=== PATIENT | male | born 1945 | race Caucasian/White ===

== ENCOUNTER 2020-12-01 22:29 | Emergency (ER) | payer OTHER ==
[~2020-12-01] VITALS: Ht 172.7 cm; Wt 86.2 kg
[2020-12-01] MEDS ORDERED: OXYC-128 PO (23:11)
--- NOTE | 2020-12-01 23:19 | NUR ---
SPOKE WITH UPSALA JONAS. DR NUÑEZ WILL CALL BACK. JONAS IS FAXING CLINICALS NOW.
[2020-12-01] MEDS ORDERED: oxyCODONE/APAP (5/325 MG) 1 UDTAB TABLET ONE (23:49)
[2020-12-01] MEDS ORDERED: ONDANSETRON 4 MG TAB.RAPDIS ONE (23:49)
[2020-12-01] MEDS: ONDANSETRON 4 MG TAB.RAPDIS SL ONE (23:51)
[2020-12-01] MEDS: oxyCODONE/APAP (5/325 MG) 1 UDTAB TABLET PO ONE (23:51)
--- NOTE | 2020-12-02 00:24 | NUR ---
[facility] ETA 0114
--- NOTE | 2020-12-02 01:06 | NUR ---
[facility] AT BEDSIDE FOR TRANSPORTATION HOME.
--- NOTE | 2020-12-02 01:14 | NUR ---
PT WAS PICKED UP BY [facility] VIA GURNEY AND D/C'D HOME IN STABLE CONDITION. Patient discharged to home in stable condition. Written and verbal after care instructions given. Patient verbalizes understanding of instruction.
[2020-12-02 01:16] VITALS: BP 138/84
== END 2020-12-02 01:17 | disposition home or self-care (01) ==
LOC: ER 22:33
DX: M79.662 Pain in left lower leg (principal); Z76.0 Encounter for issue of repeat prescription; R47.9 Unspecified speech disturbances; R22.42 Localized swelling, mass and lump, left lower limb; Z98.890 Other specified postprocedural states; Z60.2 Problems related to living alone
CPT/HCPCS: 73590; 93971; 99284; Q0162

== ENCOUNTER 2022-09-08 01:14 | Inpatient (IN) | payer OTHER ==
[~2022-09-08] VITALS: Ht 198.1 cm; Wt 81.6 kg
[~2022-09-08 01:14] MED LIST: OXYC-128 PO
--- NOTE | 2022-09-08 02:22 | NUR ---
IV L HAND #20G S/L; THERMAL MOLDER AT PT'S BEDSIDE
--- NOTE | 2022-09-08 02:30 | NUR ---
Pt is noted responsive as he was bought in from Home C/O SOB and Headaches with RR at 30 with S/P Albuterol breathing traetment given in the field. Pt care continue as awaits MD orders.
[2022-09-08 02:32] LABS: BASOPHILS % (AUTO) 0.7 % (0.0-2.0); EOSINOPHILS % (AUTO) 2.7 % (0.0-6.0); HEMATOCRIT 47 % (39-51); HEMOGLOBIN 15.4 g/dL (13.5-17.5); LYMPHOCYTES % (AUTO) 14.6 % (20.0-44.0); MEAN CORPUSCULAR HGB CONC 33 g/dl (31.0-36.0); MEAN CORPUSCULAR VOLUME 99 fL (80-96); MONOCYTES # (AUTO) 0.8 K/uL (0.1-1.30); MONOCYTES % (AUTO) 11.1 % (2.0-12.0); NEUTROPHILS # (AUTO) 4.9 K/uL (1.8-8.9); NEUTROPHILS % (AUTO) 70.9 % (43.0-81.0); PLATELET COUNT (AUTO) 171 K/uL (150-450); WHITE BLOOD COUNT (AUTO) 6.9 K/uL (4.3-11.0)
--- NOTE | 2022-09-08 02:42 | NUR ---
PT TAKEN TO CT VIA JANIA
[2022-09-08 02:45] LABS: CALCIUM, SERUM 9.1 mg/dL (8.5-10.1); CARBON DIOXIDE 18 mmol/L (21-32); CHLORIDE 106 mmol/L (98-107); CREATININE 1.9 mg/dL (0.6-1.3); GLUCOSE 133 mg/dL (74-106); POTASSIUM 3.4 mmol/L (3.5-5.1); SODIUM SERUM 142 mmol/L (136-145); UREA NITROGEN, BLOOD 17 mg/dL (7-18)
[2022-09-08 02:58] LABS: ALANINE AMINOTRANSFERASE 13 U/L (12-78); ALKALINE PHOSPHATASE 96 U/L (46-116); ASPARTATE AMINOTRANSFERASE 18 U/L (15-37); BILIRUBIN,DIRECT 0.1 mg/dL (0.0-0.2); BILIRUBIN,TOTAL 0.4 mg/dL (0.2-1.0); TOTAL PROTEIN, SERUM 7.4 g/dL (6.4-8.2)
--- NOTE | 2022-09-08 03:00 | NUR ---
Pt is noted back from CT . Pt care continue.
[2022-09-08] MEDS ORDERED: ALBUTEROL FS 2.5 MG/3 ML VIAL.NEB ONE (04:51)
[2022-09-08] MEDS ORDERED: IPRATROPIUM NEB FS 0.5 MG/2.5 ML AMPUL.NEB ONE (04:51)
[2022-09-08] MEDS ORDERED: IPRATROPIUM NEB FS 0.5 MG/2.5 ML AMPUL.NEB NEB ONE (05:00)
[2022-09-08] MEDS ORDERED: ALBUTEROL FS 2.5 MG/3 ML VIAL.NEB NEB ONE (05:00)
--- NOTE | 2022-09-08 05:12 | NUR ---
GUILLE EPRP PAGED PER DR BASURTO
[2022-09-08] MEDS ORDERED: FUROSEMIDE 40 MG/4 ML VIAL IV ONE (05:30)
[2022-09-08] MEDS ORDERED: FUROSEMIDE 40 MG/4 ML VIAL ONE (05:31)
--- NOTE | 2022-09-08 05:42 | NUR ---
Pt is noted off the unit to CT after been medicated with lASIX 40mg IVP and a new IV Access instered to LAC #20g fot CTA as ordred.
[2022-09-08] MEDS ORDERED: IV NS 0.9% 250 ML IV ONE (05:46)
[2022-09-08] MEDS ORDERED: CT SWABBABLE VALVE TRANS SET 1 EA INFUS.SET MC ONE (05:46)
[2022-09-08] MEDS ORDERED: IOHEXOL-350 100 ML VIAL IV ONE (05:46)
[2022-09-08] MEDS ORDERED: AMIODARONE 150 MG/3 ML VIAL IV ONE (05:50)
[2022-09-08] MEDS ORDERED: AMIODARONE 450 MG in IV D5W 250 ML IV ONE (06:00)
[2022-09-08] MEDS ORDERED: AMIODARONE 150 MG in IV D5W 100 ML IV ONE ×2 (06:00→10:30)
--- NOTE | 2022-09-08 06:16 | NUR ---
Pt is started on Amiodarone 150mg IVPB X1 and theen will start on the gtt per protocol. Pt care continue.
--- NOTE | 2022-09-08 06:19 | NUR ---
Pt is now Sinus Rhythm in the 70s as MD is made aware with orders noted to Hold on Amiodarone gtt. Pt care continue as he is been monitor closely.
[2022-09-08] MEDS ORDERED: MAG HYDROX/AL HYDROX/SIMETH 30 ML UDC PO PRN (06:30)
[2022-09-08] MEDS ORDERED: IPRATROPIUM NEB FS 0.5 MG/2.5 ML AMPUL.NEB NEB PRN (06:30)
[2022-09-08] MEDS ORDERED: ACETAMINOPHEN 325 MG TABLET PO PRN (06:30)
[2022-09-08] MEDS ORDERED: ALBUTEROL FS 2.5 MG/0.5 ML VIAL.NEB NEB PRN (06:30)
[2022-09-08] MEDS ORDERED: HYDROCODONE/APAP 5/325MG TABLET PO PRN (06:30)
[2022-09-08] MEDS ORDERED: Z GUARD REMEDY 4 OZ OINT TP PRN (06:30)
[2022-09-08] MEDS ORDERED: MORPHINE SULFATE INJ 2 MG/ML DISP.SYRIN IV PRN (06:30)
[2022-09-08] MEDS ORDERED: MAGNESIUM HYDROXIDE 30 ML UDC PO PRN (06:30)
[2022-09-08 06:35] LABS: CHOLESTEROL 98 mg/dL (<200); HDL CHOLESTEROL 36 mg/dL (40-60); LDL 60 mg/dL (0-99); TRIGLYCERIDES 90 mg/dL (30-150)
[2022-09-08 06:45] LABS: ABG BASE EXCESS -6.8 mmol/L; ABG PCO2 30.6 mmHg (35.0-45.0); ABG PH 7.365 (7.350-7.450); ABG PO2 187.9 mmHg (75.0-100.0); COHb 0.3 % (0.5-1.5); MetHb 0.5 % (0.0-1.5); O2Hb 98.4 % (94.0-97.0); SITE, ABG Right Radial; VENT MODE, BG SIMPLE MASK
--- NOTE | 2022-09-08 07:23 | NUR ---
Pt is care continue as report is given to the AM receiving nurse.
--- NOTE | 2022-09-08 07:48 | NUR ---
BED ASSIGNED 116-1
--- NOTE | 2022-09-08 07:57 | NUR ---
Report given to Nadiya RN-patient clear to go to room 116-1
--- NOTE | 2022-09-08 08:00 | NUR ---
Patient AOx2-3, he is able to express his concerns. Patient now requesting a urinal and able to use it. Dissicult to uinderstand and patient is also hard of hearing. Discussed plan of care, patient verbalized agreement.
--- NOTE | 2022-09-08 09:30 | NUR ---
JUANCARLOS RN ADMITTING NOTES: RECEIVED PT FROM ER VIA GURNEY ASSISTED BY 1RN AND 1EMT. PT IS A0X4. ABLE TO MAKE NEEDS KNOWN. RECEIVED PT WITH MASK AT 10LPM. O2 99%. NOTED WHEEZING UPON AUSCULTATION.PT ORIENTED TO ROOM AND CALL LIGHT FOR ASSISTANCE. IV ACCESS TO LEFT AC 20G AND LEFT HAND 20 G. BOTH FLUSHING. BOTH PATENT AND INTACT. BOWEL SOUNDS HEARD IN ALL 4 QUADRANTS. NO DIARRHEA, NO CONSTIPATION NOTED. BODY CHECKED DONE ORDERED. NOTED SKIN ISSUES TO L KNEE,L LEG, R LEG, ABD FOLD, MID CHEST. PHOTOS TAKEN AND KEPT CHART. WOUND CONSULT CARE CONSULT REQUESTED. NOTED PT WITH CONTRACTURE TO LEFT HAND AND BLE. VITAL SIGNS B/P129/78,TEMP 98.7,HR 154 AFIB, RESP 21.SAFETY PRECAUTION IN PLACED. BED IN LOW LOCK POSITION. S/R UP X2. CALL LIGHT WITHIN REACH.
[2022-09-08] MEDS ORDERED: BUDE10.2 INH (09:54)
[2022-09-08] MEDS ORDERED: LISI10TA29 PO (09:54)
[2022-09-08] MEDS ORDERED: TIOT4MIS2 INH (09:54)
[2022-09-08] MEDS ORDERED: MELA5TAB PO (09:54)
[2022-09-08] MEDS ORDERED: TACR100O2 TP (09:54)
[2022-09-08] MEDS ORDERED: FURO20TA4 PO (09:54)
[2022-09-08] MEDS ORDERED: GABA-532 PO (09:54)
[2022-09-08] MEDS ORDERED: CHOL100043 PO (09:54)
[2022-09-08] MEDS ORDERED: HYDR-3972 PO (09:54)
[2022-09-08] MEDS ORDERED: SIMV-49 PO (09:54)
[2022-09-08] MEDS ORDERED: NALO4SPR NS (09:54)
[2022-09-08] MEDS ORDERED: DICL100G34 TP (09:54)
[2022-09-08] MEDS ORDERED: LORA-259 PO (09:54)
[2022-09-08] MEDS ORDERED: POTA10TA10 PO (09:54)
[2022-09-08] MEDS ORDERED: CITA10TA9 PO (09:54)
[2022-09-08] MEDS ORDERED: LEVA15HF4 IH (09:54)
[2022-09-08] MEDS ORDERED: ASPI-1420 PO (09:54)
[2022-09-08] MEDS ORDERED: AMLO-212 PO (09:54)
[2022-09-08] MEDS ORDERED: POTASSIUM CHLORIDE 10 MEQ TABLET.SA PO ONE (10:00)
[2022-09-08] MEDS: PANTOPRAZOLE 40 MG VIAL IV SCH (10:12)
[2022-09-08] MEDS: FUROSEMIDE 40 MG/4 ML VIAL IV SCH (10:12)
[2022-09-08] MEDS ORDERED: AMIODARONE 450 MG in IV D5W 250 ML IV PRN (10:30)
[2022-09-08] MEDS: IPRATROPIUM NEB FS 0.5 MG/2.5 ML AMPUL.NEB NEB SCH ×3 (10:30→20:32)
--- NOTE | 2022-09-08 10:42 | NUR ---
JUANCARLOS RN NOTE: DR. HALL AT BEDSIDE.
--- NOTE | 2022-09-08 10:57 | NUR ---
STAGECRAFT TEACHER NOTE: NPO. WITH ORDER KCL PO. NOTIFIED PT IS UNABLE TO TOLERATE PO MED. CHANGED TO KCL IV
[2022-09-08] MEDS ORDERED: POTASSIUM CL. PREMIX PERIPHER. 50 ML IV SCH (11:00)
[2022-09-08] MEDS: methylPREDNISolone SOD SUCC 125 MG/2ML VIAL IV SCH ×2 (11:07→16:38)
--- NOTE | 2022-09-08 11:30 | NUR ---
JUANCARLOS RN NOTE: PT REQUESTED LUNCH. SWALLOW TEST DONE AT BEDSIDE.HOB KEPT ELEVATED. ABLE TO TOLERATE APPLE SAUCE, THIN LIQUID WATER. ,ABLE TO TOLERATE. WITH NO COUGHING, NO ASPIRATION NOTED. MD NOTIFIED. WITH ORDER PUREED DIET WITH THIN LIQUIDS AND SPEECH THERAPY EVAL.
[2022-09-08] MEDS: AMIODARONE 450 MG in IV D5W 241 ML IV PRN ×2 (11:38→21:05)
[2022-09-08] MEDS: APIXABAN 2.5 MG TABLET PO SCH ×2 (11:48→16:39)
[2022-09-08] MEDS: CEFEPIME 2 GM in IV D5W 100 ML IV SCH ×2 (12:46→21:03)
--- NOTE | 2022-09-08 13:30 | NUR ---
URINE SPECIMEN SENT TO LAB
--- NOTE | 2022-09-08 13:35 | NUR ---
MRSA SWAB COLLECTED AND SENT TO LAB
[2022-09-08 14:00] VITALS: BP 115/74
[2022-09-08 14:08] LABS: BILIRUBIN,URINE NEGATIVE (NEGATIVE); COLOR,URINE YELLOW (YELLOW); LEUKOCYTE ESTERASE ,URINE NEGATIVE (NEGATIVE); NITRITE, URINE NEGATIVE (NEGATIVE); PH,URINE 5.5 (5.0-8.0); PROTEIN,URINE NEGATIVE (NEGATIVE); UGLUCOSE NEGATIVE (NEGATIVE); UROBILINOGEN,URINE 0.2 EU/dL (0.2)
[2022-09-08 14:09] LABS: CREATININE, URINE 26.3 MG/DL (30.0-125.0)
[2022-09-08 14:16] LABS: THYROID STIMULATING HORMONE 0.683 uIU/mL (0.358-3.74)
--- NOTE | 2022-09-08 14:20 | NUR ---
RT AT BEDSIDE PLACED PT ON 4LPM NC. O2SAT AT 95%. HOB KEPT ELEVATED, NO SOB, NO DYSPNEA. NO RESP DISTRESS NOTED. CALL LIGHT WITHIN REACH.
[2022-09-08 14:27] VITALS: BP 107/67
--- NOTE | 2022-09-08 14:36 | NUR ---
[facility] [phone]
[2022-09-08 15:31] LABS: BACTERIA,URINE Few /HPF (None Seen); HYALINE CASTS, URINE Few /LPF (None Seen); RBC,URINE 0-2 /HPF (0-2); SQUAMOUS EPITHELIAL CELL,UR Few /HPF (None Seen); WBC,URINE 0-2 /HPF (0-3)
[2022-09-08 18:00] VITALS: BP 107/78
--- NOTE | 2022-09-08 18:33 | NUR ---
RN CLOSING NOTE: PT AOX3. ABLE TO DENY PAIN OR DISCOMFORT. ABLE TO MAKE NEEDS KNOWN. ON N/C AT 4LPM O2 SAT 97%. HOB KEPT ELEVATED. ASPIRATION PRECAUTION OBSERVED. ABLE TO TOLERATE CURRENT DIET. NO ASPIRATION NOTED. ON AMIODARONE DRIP PER PROTOCOL ATTACHED TO LAC 20G. PATENT AND INTACT. L HAND 20 G. PATENT AND INTACT. NO INFILTRATION NOTED. STILL NOTED WITH AFIB RVR HR 116. NO CHANGE IN LOC NOTED. REMAINS CALM AND STABLE AT THIS TIME. CALL LIGHT WITHIN REACH. CONT TO NEXT SHIFT FOR CONTINUATION OF CARE.
--- NOTE | 2022-09-08 20:00 | NUR ---
JUANCARLOS RN OPENING NOTE: RECEIVED PT IN BED AWAKE A/OX3 ON TELE MONITOR ON ST 132 NO SOB NO DISTRESS NOTED .V/S STABLE AFEBRILE NO C/O OF PAIN OR DISCOMFORT. ABLE TO MAKE NEEDS KNOWN. ON N/C AT 4LPM O2 SAT 97%. HOB KEPT ELEVATED. ASPIRATION PRECAUTION OBSERVED. ON AMIODARONE DRIP O.5MG /16.6 ML /HR ATTACHED TO LAC 20G. PATENT AND INTACT. L HAND 20 G. PATENT AND INTACT. NO INFILTRATION NOTED. . NO CHANGE IN LOC NOTED. REMAINS CALM AND STABLE AT THIS TIME. CALL LIGHT WITHIN REACH. WILL CONTINUE TO MONITOR PTS.
--- NOTE | 2022-09-08 22:30 | NUR ---
JUANCARLOS RN NOTES Pts c/o of n/v x1 EPISODE SMALL AMT OF EMESIS . ZOFRAN 4MG IVP GIVEN ORDERED WITH EFFECT .WILL CONTINUE TO MONITOR PTS.
[2022-09-08] MEDS: ONDANSETRON HCL/PF 4 MG/2 ML VIAL IVP PRN (22:31)
[2022-09-09] VITALS: BP 111/67
[2022-09-09] MEDS: IPRATROPIUM NEB FS 0.5 MG/2.5 ML AMPUL.NEB NEB SCH ×4 (01:23→19:30)
[2022-09-09 04:00] VITALS: BP 113/57
--- NOTE | 2022-09-09 05:42 | NUR ---
LABEL REMOVER note LAC peripheral line D/C, RAC 22GA started, flushing well, C/D/I
[2022-09-09 06:06] LABS: BASOPHILS % (AUTO) 0.1 % (0.0-2.0); HEMATOCRIT 42 % (39-51); HEMOGLOBIN 13.7 g/dL (13.5-17.5); LYMPHOCYTES # (AUTO) 0.5 K/uL (0.8-4.8); LYMPHOCYTES % (AUTO) 6.7 % (20.0-44.0); MEAN CORPUSCULAR HGB CONC 33 g/dl (31.0-36.0); MEAN CORPUSCULAR VOLUME 98 fL (80-96); MONOCYTES # (AUTO) 0.5 K/uL (0.1-1.30); MONOCYTES % (AUTO) 6.5 % (2.0-12.0); NEUTROPHILS # (AUTO) 6.2 K/uL (1.8-8.9); NEUTROPHILS % (AUTO) 86.7 % (43.0-81.0); PLATELET COUNT (AUTO) 163 K/uL (150-450); RED BLOOD CELL COUNT(AUTO) 4.24 MIL/uL (4.5-6.0); WHITE BLOOD COUNT (AUTO) 7.1 K/uL (4.3-11.0)
[2022-09-09 06:21] LABS: ALANINE AMINOTRANSFERASE 14 U/L (12-78); ALBUMIN 3.1 g/dL (3.4-5.0); ALKALINE PHOSPHATASE 69 U/L (46-116); ASPARTATE AMINOTRANSFERASE 23 U/L (15-37); BILIRUBIN,TOTAL 0.5 mg/dL (0.2-1.0); CALCIUM, SERUM 7.5 mg/dL (8.5-10.1); CARBON DIOXIDE 18 mmol/L (21-32); CHLORIDE 110 mmol/L (98-107); CREATININE 1.6 mg/dL (0.6-1.3); GLUCOSE 117 mg/dL (74-106); MAGNESIUM 1.8 mg/dL (1.8-2.4); PHOSPHORUS 3.2 mg/dL (2.5-4.9); POTASSIUM 3.1 mmol/L (3.5-5.1); SODIUM SERUM 143 mmol/L (136-145); UREA NITROGEN, BLOOD 22 mg/dL (7-18)
--- NOTE | 2022-09-09 06:53 | NUR ---
obdulia rn notes Pts remain in bed awake and responsive continue on amiodrip at 0.5 mg /16.6/hr .pts still on on tele monitor afib 115 on the monitor will endorse to rn day shift for continuity of care.
--- NOTE | 2022-09-09 06:54 | NUR ---
CLIENT SERVICES MANAGER closing note Pt resting in bed, awake, A&Ox3, able to make needs known, breathing even and unlabored, on o2 at 4L via NC, amiodarone infusing via RAC 22GA, IV site C/D/I, tele monitor intact, Afib contorled, HR 150, all due meds given per MD orders tolerated well, repositioned q2h and prn, all basic needs met and anticipated, will endorse to am shift
--- NOTE | 2022-09-09 07:37 | NUR ---
JUANCARLOS RN OPENING NOTE: RECEIVED PT IN BED AWAKE A/OX3, NO SOB NO DISTRESS NOTED .V/S STABLE AFEBRILE NO C/O OF PAIN OR DISCOMFORT. ABLE TO MAKE NEEDS KNOWN. ON N/C AT 4LPM O2 TOLERATING WELL. ON TELE MONITOR WITH READING AFIV WITH RVR HR 130'S. HOB KEPT ELEVATED. ASPIRATION PRECAUTION OBSERVED. ON AMIODARONE DRIP O.5MG /16.6 ML /HR ATTACHED TO LAC 20G. PATENT AND INTACT. L HAND 20 G. PATENT AND INTACT. NO INFILTRATION NOTED. NO CHANGE IN LOC NOTED. REMAINS CALM AND STABLE AT THIS TIME. CALL LIGHT WITHIN REACH. PLAN OF CARE CONTINUE.
[2022-09-09] MEDS: CEFEPIME 2 GM in IV D5W 100 ML IV SCH ×2 (08:03→20:44)
[2022-09-09] MEDS: PANTOPRAZOLE 40 MG VIAL IV SCH (08:04)
[2022-09-09] MEDS: FUROSEMIDE 40 MG/4 ML VIAL IV SCH (08:05)
[2022-09-09] MEDS: ONDANSETRON HCL/PF 4 MG/2 ML VIAL IVP PRN ×2 (08:05→16:19)
[2022-09-09] MEDS: methylPREDNISolone SOD SUCC 125 MG/2ML VIAL IV SCH ×2 (08:06→16:15)
[2022-09-09] MEDS: APIXABAN 2.5 MG TABLET PO SCH ×3 (08:18→16:34)
[2022-09-09] MEDS ORDERED: POTASSIUM CHLORIDE 20 MEQ TAB.PRT.SR PO SCH (09:00)
--- NOTE | 2022-09-09 09:39 | NUR ---
INFORMED DR. HADDAD THAT PATIENT CAN'T TOLERATED PO DUE TO VOMITING, PATIENT NOTED ON PO POTASSIUM, WITH ORDER TO CHANGED PO TO IV POTASSIUM SAME DOSE, NOTED AND CARRIED OUT.
[2022-09-09] MEDS: POTASSIUM CL. PREMIX PERIPHER. 50 ML IV SCH ×6 (10:15→15:37)
--- NOTE | 2022-09-09 11:31 | NUR ---
PATIENT STILL NOTED HAVING NAUSEA AND VOMITING, INFORMED DR. HADDAD WITH NEW ORDEER TO GIVE REGLAN 10MG, NOTED AND CARRIED OUT.
--- NOTE | 2022-09-09 11:56 | NUR ---
INFORMED DR. HALL PATIENT STILL AFIB WITH RVR HR 150'S, AMIODARONE DRIP IS END AT 1000H PER PROTOCOL, WITH ORDER TO DC AMIODARONE DRIP, PER DR. HALL PATIENT IS OK TO TRANSFER TO [facility], THEY CAN CARDIOVERT AT [facility]. NOTED AND CARRIED OUT, INFORMED DR. HADDAD.
[2022-09-09 12:00] VITALS: BP 117/70
[2022-09-09] MEDS ORDERED: METOCLOPRAMIDE HCL 10 MG/2 ML VIAL IV PRN (12:00)
--- NOTE | 2022-09-09 13:13 | NUR ---
RECEIVED NEW ORDER FROM DR. HALL DIGOXIN 0.25MG IV X 1 NOW, NOTED AND CARRIED OUT.
[2022-09-09] MEDS ORDERED: DIGOXIN INJ 0.5 MG/2 ML AMPUL IV ONE ×2 (13:30→19:00)
[2022-09-09 16:00] VITALS: BP 121/85
[2022-09-09] MEDS: ENSURE ENLIVE 237 ML LIQUID (VANILLA) PO SCH (16:00)
--- NOTE | 2022-09-09 16:35 | NUR ---
PATIENT STILL NOTED VOMITING EVEN WITH REGLAN, PATIENT STATED HE DID NOT HAVE BOWEL MOVEMENT FOR 1 WEEK AND 1/2, NOTED LOWER ABDOMEN HARD TO TOUCH, POSITIVE BOWEL SOUNDS, INFORMED DR. HADDAD WITH ORDER TO STAT KUB, COLACE 100MG BID SCHEDULED, MIRALAX 17GM BID SCHEDULED, LACTULOSE 20GM BID X 1 DAY, SUPPOSITORY PRN, NOTED AND CARRIED OUT.
--- NOTE | 2022-09-09 16:38 | NUR ---
PATIENT UNABLE TO TAKE ELIQUIS PO DUE TO VOMITING, INFORMED DR. HALL WITH NEW ORDER: DIGOXIN 0.25MG IV Q 6HRS X 3 DOSES, NOTED AND CARRIED OUT.
[2022-09-09] MEDS: POLYETHYLENE GLYCOL 3350 17 GM POWD.PACK PO SCH (17:00)
[2022-09-09] MEDS: DOCUSATE SODIUM 100 MG CAPSULE PO SCH (17:00)
[2022-09-09] MEDS ORDERED: BISACODYL SUPP (10 MG) 10 MG/SUPP.RECT SUPP.RECT RC PRN (17:30)
[2022-09-09] MEDS: DIGOXIN INJ 0.5 MG/2 ML AMPUL IV SCH (17:52)
--- NOTE | 2022-09-09 18:14 | NUR ---
INFORMIX DEVELOPER CLOSING NOTE: PT IN BED SLEEPING A/OX3, VERBALLY RESPONSIVE WHEN AWAKEN, NO SOB NO DISTRESS NOTED .V/S STABLE AFEBRILE NO C/O OF PAIN OR DISCOMFORT. ABLE TO MAKE NEEDS KNOWN. ON N/C AT 4LPM O2 TOLERATING WELL. ON TELE MONITOR WITH READING AFIV WITH RVR HR 130'S, DENIES CHEST PAIN. HOB KEPT ELEVATED. ASPIRATION PRECAUTION OBSERVED. PIV ON RIGHT AC AND LEFT HAND 20G AND PATENT AND INTACT, FLUSHES WELL, NO INFILTRATION NOTED. NO CHANGE IN LOC NOTED. REMAINS CALM AND STABLE AT THIS TIME. CALL LIGHT WITHIN REACH. SAFETY MEASURES IN PLACED. WILL ENDORSE TO NIGHT NURSE FOR JAMEEL.
[2022-09-09 20:00] VITALS: BP 113/80
--- NOTE | 2022-09-09 20:00 | NUR ---
telephone quotation clerk OPENING NOTE: RECEIVED PT IN BED AWAKE A/OX3 ON TELE MONITOR ON afib 140 NO SOB NO DISTRESS NOTED .V/S STABLE AFEBRILE NO C/O OF PAIN OR DISCOMFORT. ABLE TO MAKE NEEDS KNOWN. ON N/C AT 4LPM O2 SAT 97%. HOB KEPT ELEVATED. ASPIRATION PRECAUTION OBSERVED.IV RIGHTAC g22 INTACT AND PATENT ,RIGHT HAND G20 PATENT AND INTACT. NO INFILTRATION NOTED. . NO CHANGE IN LOC NOTED. REMAINS CALM AND STABLE AT THIS TIME. ALL DUE MEDS GIVEN ORDERED CALL LIGHT WITHIN REACH.PTS IS NPO STATUS FOR CARDIOVERSION IN AM (DR HALL.) RP MADE AWARE OF PROCEDURE WILL CONTINUE TO MONITOR PTS.
[2022-09-10] VITALS: BP 126/78
--- NOTE | 2022-09-10 | NUR ---
telephone information supervisor notes digoxin 0.25mg given as ordered
[2022-09-10] MEDS: DIGOXIN INJ 0.5 MG/2 ML AMPUL IV SCH ×2 (00:58→05:59)
[2022-09-10] MEDS: IPRATROPIUM NEB FS 0.5 MG/2.5 ML AMPUL.NEB NEB SCH ×4 (01:21→19:23)
[2022-09-10 04:00] VITALS: BP 121/78
--- NOTE | 2022-09-10 06:26 | NUR ---
satellite television installer notes digoxin 0.25mg given ivp at 6am as ordered with hr of 140s pts remain npo status for cardioversion
--- NOTE | 2022-09-10 06:29 | NUR ---
radiotelephone technical operator notes, PTS REMAIN IN BED AWAKE , STILL AFIB 130-140s UNCONTROLLED ON THE MONITOR , npo status , for cardioversion today , will endorse to morning shift for continuity of care.
[2022-09-10 07:15] LABS: HEMATOCRIT 47 % (39-51); HEMOGLOBIN 15.5 g/dL (13.5-17.5); LYMPHOCYTES # (AUTO) 0.5 K/uL (0.8-4.8); LYMPHOCYTES % (AUTO) 3.7 % (20.0-44.0); MEAN CORPUSCULAR HGB CONC 33 g/dl (31.0-36.0); MEAN CORPUSCULAR VOLUME 98 fL (80-96); MONOCYTES % (AUTO) 7.1 % (2.0-12.0); NEUTROPHILS # (AUTO) 12.2 K/uL (1.8-8.9); NEUTROPHILS % (AUTO) 89.2 % (43.0-81.0); PLATELET COUNT (AUTO) 165 K/uL (150-450); RED BLOOD CELL COUNT(AUTO) 4.83 MIL/uL (4.5-6.0); WHITE BLOOD COUNT (AUTO) 13.7 K/uL (4.3-11.0)
[2022-09-10 07:18] LABS: ALANINE AMINOTRANSFERASE 23 U/L (12-78); ALBUMIN 3.6 g/dL (3.4-5.0); ALKALINE PHOSPHATASE 78 U/L (46-116); ASPARTATE AMINOTRANSFERASE 47 U/L (15-37); BILIRUBIN,TOTAL 0.6 mg/dL (0.2-1.0); CALCIUM, SERUM 9.2 mg/dL (8.5-10.1); CARBON DIOXIDE 24 mmol/L (21-32); CHLORIDE 107 mmol/L (98-107); CREATININE 1.9 mg/dL (0.6-1.3); GLUCOSE 124 mg/dL (74-106); MAGNESIUM 2.5 mg/dL (1.8-2.4); PHOSPHORUS 2.8 mg/dL (2.5-4.9); POTASSIUM 5.2 mmol/L (3.5-5.1); SODIUM SERUM 142 mmol/L (136-145); TOTAL PROTEIN, SERUM 7.1 g/dL (6.4-8.2); UREA NITROGEN, BLOOD 37 mg/dL (7-18)
--- NOTE | 2022-09-10 07:37 | NUR ---
PT ARRIVED IN ICU FOR CARDIOVERSION. PT UNABLE TO SIGN CONSENT. NO ORDERS NOTED IN COMPUTER FOR CARDIOVERSION OR MEDS FOR SEDATION FOR PATIENT. WILL CLARIFY ORDERS WITH DR HALL.
[2022-09-10 07:43] LABS: DIGOXIN 8.54 ng/mL (0.90-2.00)
[2022-09-10 08:00] VITALS: BP 121/78
[2022-09-10] MEDS ORDERED: ANESTHESIA TRAY IN PYXIS 1 EA TRAY MC ONE (08:29)
[2022-09-10] MEDS ORDERED: MIDAZOLAM HCL 2 MG/2ML VIAL ONE (08:37)
[2022-09-10] MEDS: LACTULOSE 10 G/15 ML UDC (PYXIS) PO SCH ×2 (09:00→16:47)
[2022-09-10] MEDS: ENSURE ENLIVE 237 ML LIQUID (VANILLA) PO SCH ×2 (09:00→16:50)
[2022-09-10] MEDS ORDERED: IV NS 0.9% 1,000 ML IV PRN (09:00)
[2022-09-10] MEDS: POLYETHYLENE GLYCOL 3350 17 GM POWD.PACK PO SCH ×2 (09:00→16:50)
[2022-09-10] MEDS: AMIODARONE HCL 200 MG TABLET PO SCH ×3 (09:00→16:47)
[2022-09-10] MEDS: APIXABAN 2.5 MG TABLET PO SCH ×2 (09:00→16:49)
[2022-09-10] MEDS: CEFEPIME 2 GM in IV D5W 100 ML IV SCH ×2 (09:00→21:06)
[2022-09-10] MEDS: methylPREDNISolone SOD SUCC 125 MG/2ML VIAL IV SCH ×2 (09:00→16:47)
[2022-09-10] MEDS: PANTOPRAZOLE 40 MG VIAL IV SCH (09:00)
[2022-09-10] MEDS: DOCUSATE SODIUM 100 MG CAPSULE PO SCH ×2 (09:00→16:48)
--- NOTE | 2022-09-10 09:36 | NUR ---
0851 - PRIOR TO CARDIOVERSION. PT'S RIGHT HEARING AID REMOVED. DR HALL AT BEDSIDE, WASTE MANAGEMENT RECYCLING TECHNICIAN AT BEDSIDE. PER WASTE MANAGEMENT RECYCLING TECHNICIAN 10MCG PROPOFOL, 6MG ETOMIDATE, 2MG VERSED GIVEN TO PATIENT FOR SEDATION. 6L SIMPLE MASK APPLIED TO PATIENT PRIOR TO PROCEDURE. VERBAL PROCEDURE CONSENT AND ANESTHESIA CONSENT OBTAINED AND WITNESSED PRIOR TO SEDATION.. VS: HR 142 RAPID A-FIB, 124/93, 96% 0852 - 200J SHOCK GIVEN TO PATIENT USING ACLS PROTOCOL. PT IMMEDIATELY CONVERTED TO SR, RATE 98. POST SHOCK VS: 98, 115/82 95% ON 6L SIMPLE MASK. 0930 - PT NOT AWAKE FOLLOWING PROCEDURE OF THIS TIME. VS STABLE. POST PROCEDURE EKG DONE. CURRENT VS: 93-125/80-98% 6L SM. WILL CONTINUE TO MONITOR. PER DR HALL OK FOR PATIENT TO TRANSFER TO [place]. CASE MANAGEMENT NOTIFIED.
[2022-09-10] MEDS ORDERED: AMIO200T7 PO (10:18)
[2022-09-10] MEDS ORDERED: APIX2.5T PO (10:18)
--- NOTE | 2022-09-10 10:32 | NUR ---
PT TRANSFERRED BACK TO ROOM 116-1 VIA BED, ACLS PROTOCOL FOLLOWED. PT AWAKE, OX4, YOMBA SHOSHONE, HEARING AID IN PLACE. PHONE AND BEDSIDE REPORT GIVEN.
--- NOTE | 2022-09-10 10:35 | NUR ---
RN NOTES: PT S/P CARDIOVERSION. PICKED UP [place] FROM ICU VIA BED WITH FEMI VALDEZ. PT ALERT AND ORIENTED X 4 HARD OF HEARING WITH RIGHT EAR HEARING AIDE. NO SOB NOTED ON O2 INHALATION @ 4LPM VIA NC SATURATING @ 96%. ON SOCCER REFEREE WITH CURRENT READING SINUS @90BPM. RECEIVED REPORT FROM [facility] ICU. IV ACCESS JESSICA G22,R HAND G20, LAC G 20. PATENT INTACT AND SALINE LOCKED. PER ENDORSEMENT PT WILL BE TRANSFERRED TO [place]. VS TAKEN BP 128/83, 90BPM, 95% O2 SAT,HR 20. SAFETY MEASURES MAINTAINED: BED LOCKED AND IN LOWEST POSITION, SIDE RAILS UP X 3, CALL LIGHT IN EASY REACH.
--- NOTE | 2022-09-10 11:00 | NUR ---
RN NOTES: INFORMED DR STEELE FOR RECENT K LEVEL 5.2. PER DR STEELE NO NEW ORDER. CALLED MANAGEMENT SPOKE TO DALIA WITH REGARDS TO [facility] TRANSFER. PER DALIA, ITS TERA'S PT, AND WILL INFORM TO CALL RN FOR TRANSFER.
[2022-09-10 12:00] VITALS: BP 130/82
[2022-09-10 16:00] VITALS: BP 128/72
--- NOTE | 2022-09-10 18:00 | NUR ---
RN NOTES: RECEIVED A CALL FROM CHARLES ([facility]) AND GAVE REPORT. TRANSPORTATION PENDING WILL ENDORSE TO NEXT SHIFT.
--- NOTE | 2022-09-10 18:47 | NUR ---
CAMERA PERSON CLOSING NOTES: PT IN BED ASLEEP, EASILY AROUSED WITH STIMULI. A/O X4. HARD OF HEARING. WITH RIGHT EAR HEARING AIDE NOTED. NO SOB OR CARDIAC DISTRESS NOTED. ON TELE MONITOR WITH CURRENT READING OF SINUS RHYTHM @79 BPM. IV ACCESS ON JESSICA GAUGE 22, R HAND G20, LAC GAUGE 20 PATENT,INTACT AND SALINE LOCKED. SAFETY MEASURES MAINTAINED: BED LOCKED AND IN LOWEST POSITION, SIDE RAILS UP X 2. CALL LIGHT IN EASY REACH. WILL ENDORSE TO SENIOR DIRECTOR CREATIVE SERVICES RN FOR CONTINUITY OF CARE.
--- NOTE | 2022-09-10 19:20 | NUR ---
RN NOTE RECEIVED PT FOR CONTINUITY OF CARE. PATIENT A/OX3-4 IN NO S/SX OF ACUTE DISTRESS AT THIS TIME; CURRENTLY ON ROOM AIR; WITH 02 SAT >95% AT THIS TIME.WITH IV ACCESS ON R AC#22 AND L HAND#20 PATENT, INTACT AND FLUSHING WELL. WITH RUNNING NS@75CC/HR. ON PUREED DIET. WILL ENSURE SAFETY MEASURES WITHIN THE SHIFT. PATIENT BED ALARM IS ON. HEAD OF BED ELEVATED. BED IS LOCKED, IN LOWEST POSITION AND SIDE RAILS UP. CALL LIGHT WITHIN REACH OF THE PATIENT. WILL CONTINUE TO MONITOR AND REASSESS FOR ANY CHANGES AND WILL CARRY OUT ANY ONGOING AND ACTIVE MD ORDER.
[2022-09-10 20:00] VITALS: BP 112/70
--- NOTE | 2022-09-10 20:45 | NUR ---
MATTHEW NOTE RECEIVED CALL FROM GUILLE WAN ([facility]- [phone]) WAS GIVEN THE ADVISE THAT PT WILL BE PICKED UP [facility] MORNING AROUND 0700AM. SOMEONE FROM THEIR TEAM WILL CALLBACK TO PROVIDE UNIT AND ROOM NUMBER FOR PT. RN ACKNOWLEDGED. RUSSIAN LANGUAGE PROFESSOR MADE AWARE. Addendum: 09/10/22 at 2103 by RAFAT ANDERSEN RN [facility] CALLED BACK ROOM [id number] AND UNIT # FOR REPORT [phone]
[2022-09-11] VITALS: BP 115/78
[2022-09-11] MEDS: IPRATROPIUM NEB FS 0.5 MG/2.5 ML AMPUL.NEB NEB SCH (01:30)
--- NOTE | 2022-09-11 02:45 | NUR ---
RN NOTE CALLED [facility] [phone] FOR REPORT; S/W MATTHEW MCQUEEN REQUESTED FOR CALLBACK; PROVIDED CALLBACK #. Addendum: 09/11/22 at 0340 by RAFAT ANDERSEN RN [phone] ATTEMPT TO GIVE REPORT, RN NOT AVAILABLE , REQUESTED FOR CALLBACK.
[2022-09-11 04:00] VITALS: BP 120/62
--- NOTE | 2022-09-11 04:35 | NUR ---
RN NOTE CALLED [facility] [phone] FOR REPORT; S/W MATTHEW MCQUEEN. PROVIDED ALL PT INFO AND MEDICAL UPDATES. RN ACKNOWLEDGED. PT WILL BE GOING TO RM [id number], AMBULANCE CARPET LOOM FIXER TIME BY 0700AM. PRINCIPAL ELECTRICAL ENGINEER MADE AWARE.
[2022-09-11 06:18] LABS: BASOPHILS % (AUTO) 0.1 % (0.0-2.0); HEMATOCRIT 48 % (39-51); HEMOGLOBIN 15.4 g/dL (13.5-17.5); LYMPHOCYTES # (AUTO) 0.4 K/uL (0.8-4.8); LYMPHOCYTES % (AUTO) 3.6 % (20.0-44.0); MEAN CORPUSCULAR HGB CONC 32 g/dl (31.0-36.0); MEAN CORPUSCULAR VOLUME 100 fL (80-96); MONOCYTES # (AUTO) 0.5 K/uL (0.1-1.30); MONOCYTES % (AUTO) 5.2 % (2.0-12.0); NEUTROPHILS # (AUTO) 9.3 K/uL (1.8-8.9); NEUTROPHILS % (AUTO) 91.1 % (43.0-81.0); PLATELET COUNT (AUTO) 146 K/uL (150-450); RED BLOOD CELL COUNT(AUTO) 4.78 MIL/uL (4.5-6.0); WHITE BLOOD COUNT (AUTO) 10.1 K/uL (4.3-11.0)
--- NOTE | 2022-09-11 06:42 | NUR ---
RN NOTE PATIENT REMAINS IN ROOM IN NO SIGNS OF RESPIRATORY DISTRESS, PATIENT STILL ON ROOM AIR; TOLERATING WELL SATURATING @ >95% SP02. REMAINED SR ON MONITOR. ON PUREED DIET. SAFETY MEASURES IMPLEMENTED, BED IN LOWEST POSITION, LOCKED, SIDE RAILS UP, CALL LIGHT WITHIN REACH. ALL NEEDS AND ORDERS ADDRESSED DURING THE SHIFT. IV ACCESS MAINTAINED INTACT, SECURED AND FLUSHING WELL. ALL DUE MEDS GIVEN ORDERED & SCHEDULED ; PATIENT TOLERATED WELL. PATIENT KEPT CLEAN AND COMFORTABLE WITHIN THE SHIFT. PLAN: FOR DC GOING TO [facility] RM 5208, REPORT GIVEN TO RN. IMPROVEMENT LEAD TIME 0700AM. DC PACKET READY AND WILL BE ENDORSE TO LAUREEN DOTY RN. PATIENT ENDORSED TO INCOMING SHIFT RN WITH STABLE VITAL SIGN AND FOR CONTINUITY OF CARE.
[2022-09-11 07:08] LABS: CALCIUM, SERUM 8.9 mg/dL (8.5-10.1); CARBON DIOXIDE 25 mmol/L (21-32); CHLORIDE 105 mmol/L (98-107); CREATININE 1.4 mg/dL (0.6-1.3); GLUCOSE 129 mg/dL (74-106); POTASSIUM 4.9 mmol/L (3.5-5.1); SODIUM SERUM 138 mmol/L (136-145); UREA NITROGEN, BLOOD 36 mg/dL (7-18)
--- NOTE | 2022-09-11 07:20 | NUR ---
RN NOTE AMBULANCE STAFF HERE TO PICK UPPATIENT, REPORT GIVEN, VITAL SIGNS WNL AND PT IN STABLE CONDITION. ALL BELONGINGS ACCOUNTED FOR AND SENT WITH PT INCLUDING RIGHT EAR HEARING AID ONLY. AM SALES REPRESENTATIVE PRINTING SUPPLIES AWARE.
== END 2022-09-11 07:45 | disposition short-term general hospital (02) | DRG 291 ==
LOC: ER 01:22 → TELE-TD 07:57 → TELE1 09-09 09:40 → ICU 09-10 07:25 → TELE-TD 09-10 10:37
PROVIDERS: ADMIT Internal Medicine; ATTEND Internal Medicine
PROC: 5A2204Z Restoration of Cardiac Rhythm, Single (ICD-10-PCS; principal; 2022-09-10)
DX: I11.0 Hypertensive heart disease with heart failure (principal); I50.31 Acute diastolic (congestive) heart failure; J96.01 Acute respiratory failure with hypoxia; N17.0 Acute kidney failure with tubular necrosis; J98.11 Atelectasis; I48.91 Unspecified atrial fibrillation; G80.9 Cerebral palsy, unspecified; E87.6 Hypokalemia; E87.5 Hyperkalemia; K80.20 Calculus of gallbladder without cholecystitis without obstruction; Z20.822 Contact with and (suspected) exposure to COVID-19; Z79.01 Long term (current) use of anticoagulants; Z79.51 Long term (current) use of inhaled steroids; Z79.899 Other long term (current) drug therapy; R91.8 Other nonspecific abnormal finding of lung field
CPT/HCPCS: 36415; 36600; 70450-TC; 71045-TC; 74018; 76770-TC; 80048-TC; 80053-TC; 80061-TC; 80076-TC; 80162-TC; 81001; 82570-TC; 82803-TC; 83735-TC; 83880; 84100-TC; 84300-TC; 84443-TC; 84484-TC; 85025-TC; 87081-TC; 92526; 92611-TC; 93307-TC; 93970-TC; 94799-TC; A4223; C9113; C9803; G0378; J0282; J0692; J1160; J1940; J2250; J2270; J2405; J2704; J2765; J2930; J3480; J3490; J7030; J7050; J7060; Q9967